=== PATIENT | female | born 1990 | race African-American/Black ===

== ENCOUNTER 2017-09-27 13:38 | Inpatient (IN) | payer OTHER ==
[~2017-09-27] VITALS: Ht 172.7 cm; Wt 99.7 kg
[2017-09-27 13:43] VITALS: Ht 172.7 cm; Wt 99.7 kg
[2017-09-27 14:12] LABS: RED CELL DISTRIBUTION WIDTH 14.2 % (11.5-14.5)
[2017-09-27 14:13] LABS: PLATELET COUNT 125 x10^3mcL (130-400)
[2017-09-27 14:25] LABS: BILIRUBIN TOTAL 1.4 mg/dL (0.20-1.00); CALCIUM 6.6 mg/dL (8.5-10.1); CARBON DIOXIDE 14.9 mmol/L (21-32); TOTAL PROTEIN, SERUM 6.7 g/dL (6.4-8.2)
[2017-09-27 14:35] LABS: BAND NEUTROPHIL 14 % (0-10); BASOPHIL 0 % (0-2); MONOCYTE 2 % (0-7); SEGMENTED NEUTROPHILS 82 % (37-75)
[2017-09-27 14:36] LABS: rbc morphology (normal/abnorm) ABNORMAL (NORMAL)
[2017-09-27 14:47] LABS: ALBUMIN 2.8 g/dL (3.4-5.0); CREATININE SERUM 7.2 mg/dL (0.6-1.0); POTASSIUM SERUM 2.7 mmol/L (3.5-5.1)
[2017-09-27 14:51] LABS: UA SPECIFIC GRAVITY >=1.030 (1.005-1.035); microscopic required? YES; urine erythrocyte 3+ (NEGATIVE)
[2017-09-27 16:55] LABS: PHOSPHOROUS 5.7 mg/dL (2.5-4.9)
[2017-09-27 17:07] LABS: T3 TOTAL 0.41 ng/mL
[2017-09-27 17:21] LABS: FREE T4 0.89 ng/dL (0.76-1.46)
[2017-09-27 17:22] LABS: FREE THYROXINE INDEX 1.5 ug/dL (1.4-4.5); T4(THYROXINE) 4.3 ug/dL (4.7-13.3)
[2017-09-27 17:28] LABS: CHOLESTEROL/HDL RATIO 7.8; MAGNESIUM 0.8 mg/dL (1.8-2.4)
[2017-09-27 17:59] VITALS: BP 146/95
[2017-09-27 18:07] VITALS: BP 96/50
[2017-09-27 19:35] VITALS: BP 112/63
[2017-09-27 20:17] LABS: CALCIUM 6.2 mg/dL (8.5-10.1); CARBON DIOXIDE 14.1 mmol/L (21-32)
[2017-09-27 20:21] LABS: CREATININE SERUM 6.1 mg/dL (0.6-1.0); POTASSIUM SERUM 2.8 mmol/L (3.5-5.1)
[2017-09-27 20:36] LABS: AMPHETAMINE QUAL UR NONE DETECTED (See below)
[2017-09-27 21:52] LABS: RED CELL DISTRIBUTION WIDTH 14.3 % (11.5-14.5)
[2017-09-27 21:56] LABS: CALCIUM 6.5 mg/dL (8.5-10.1); CARBON DIOXIDE 16.9 mmol/L (21-32); MAGNESIUM 1.4 mg/dL (1.8-2.4)
[2017-09-27 21:58] LABS: CREATININE SERUM 5.7 mg/dL (0.6-1.0)
[2017-09-27 22:09] LABS: PLATELET COUNT 96 x10^3mcL (130-400)
[2017-09-27 22:18] LABS: BAND NEUTROPHIL 13 % (0-10); BASOPHIL 0 % (0-2); MONOCYTE 1 % (0-7); SEGMENTED NEUTROPHILS 83 % (37-75)
[2017-09-27 22:19] LABS: rbc morphology (normal/abnorm) ABNORMAL (NORMAL)
[2017-09-27 23:02] VITALS: BP 101/58
[2017-09-28] VITALS (8 sets, daily range): BP systolic 91–116; BP diastolic 52–65
[2017-09-28 00:25] LABS: CREATININE UR 192.4 mg/dL
[2017-09-28 05:17] LABS: PLATELET COUNT 86 x10^3mcL (130-400); RED CELL DISTRIBUTION WIDTH 14.7 % (11.5-14.5)
[2017-09-28 05:18] LABS: BASOPHIL % 0 % (0-2)
[2017-09-28 05:45] LABS: CARBON DIOXIDE 20.4 mmol/L (21-32); PHOSPHOROUS 5.2 mg/dL (2.5-4.9); POTASSIUM SERUM 3.6 mmol/L (3.5-5.1)
[2017-09-28 05:47] LABS: CREATININE SERUM 4.4 mg/dL (0.6-1.0)
[2017-09-29 03:06] VITALS: BP 91/63
[2017-09-29 05:23] LABS: BASOPHIL % 0 % (0-2); PLATELET COUNT 52 x10^3mcL (130-400); RED CELL DISTRIBUTION WIDTH 14.7 % (11.5-14.5)
[2017-09-29 05:45] LABS: CARBON DIOXIDE 20.2 mmol/L (21-32); CREATININE SERUM 2.1 mg/dL (0.6-1.0); PHOSPHOROUS 1.5 mg/dL (2.5-4.9)
[2017-09-29 05:50] LABS: CALCIUM 5.9 mg/dL (8.5-10.1); POTASSIUM SERUM 2.6 mmol/L (3.5-5.1)
[2017-09-29 07:45] VITALS: BP 97/44
[2017-09-29 11:50] VITALS: BP 102/56
[2017-09-29 15:46] VITALS: BP 108/67
[2017-09-30 05:25] VITALS: BP 106/57
[2017-09-30 08:01] LABS: RED CELL DISTRIBUTION WIDTH 15.1 % (11.5-14.5)
[2017-09-30 08:03] LABS: PLATELET COUNT 48 x10^3mcL (130-400)
[2017-09-30 08:23] VITALS: BP 136/89
[2017-09-30 08:27] VITALS: BP 114/63
[2017-09-30 08:37] LABS: CALCIUM 6.4 mg/dL (8.5-10.1); CARBON DIOXIDE 21.7 mmol/L (21-32); CHLORIDE SERUM 107 mmol/L (98-107); GFR1 > 60 mL/min; GLUCOSE SERUM 94 mg/dL (74-106); MAGNESIUM 2.3 mg/dL (1.8-2.4); PHOSPHOROUS 1.7 mg/dL (2.5-4.9); POTASSIUM SERUM 3.2 mmol/L (3.5-5.1); SODIUM SERUM 140 mmol/L (136-145)
[2017-09-30 10:04] LABS: BAND NEUTROPHIL 7 % (0-10); BASOPHIL 0 % (0-2); MONOCYTE 6 % (0-7); PLATELET MORPHOLOGY PLATELETS DECREASED; SEGMENTED NEUTROPHILS 77 % (37-75); rbc morphology (normal/abnorm) ABNORMAL (NORMAL)
[2017-09-30 12:41] VITALS: BP 106/61
[2017-09-30 13:18] LABS: CARBON DIOXIDE 24.9 mmol/L (21-32); CHLORIDE SERUM 107 mmol/L (98-107); CREATININE SERUM 0.9 mg/dL (0.6-1.0); GFR1 > 60 mL/min; GLUCOSE SERUM 89 mg/dL (74-106); POTASSIUM SERUM 3.6 mmol/L (3.5-5.1); SODIUM SERUM 139 mmol/L (136-145)
[2017-09-30 13:23] LABS: CALCIUM 5.9 mg/dL (8.5-10.1)
[2017-09-30 17:02] VITALS: BP 115/78
[2017-09-30 20:39] VITALS: BP 114/76
[2017-10-01 05:15] VITALS: BP 110/62
[2017-10-01 06:59] LABS: CALCIUM 6.2 mg/dL (8.5-10.1); CHLORIDE SERUM 106 mmol/L (98-107); CREATININE SERUM 0.8 mg/dL (0.6-1.0); GFR1 > 60 mL/min; GLUCOSE SERUM 77 mg/dL (74-106); PHOSPHOROUS 1.6 mg/dL (2.5-4.9); POTASSIUM SERUM 3.2 mmol/L (3.5-5.1); SODIUM SERUM 138 mmol/L (136-145)
[2017-10-01 07:34] LABS: RED CELL DISTRIBUTION WIDTH 15.1 % (11.5-14.5)
[2017-10-01 07:35] LABS: PLATELET COUNT 49 x10^3mcL (130-400)
[2017-10-01 08:38] LABS: COMPLEMENT C3 68 mg/dL (82-167); COMPLEMENT C4 21 mg/dL (14-44)
[2017-10-01 08:52] VITALS: BP 109/68
[2017-10-01 09:19] VITALS: BP 109/68
[2017-10-01 13:35] VITALS: BP 112/73
[2017-10-01 15:49] LABS: ATYPICAL LYMPH 5 %; BAND NEUTROPHIL 12 % (0-10); METAMYELOCTE 1 % (0-2); MONOCYTE 6 % (0-7); SEGMENTED NEUTROPHILS 63 % (37-75)
[2017-10-01 15:55] LABS: rbc morphology (normal/abnorm) ABNORMAL (NORMAL)
[2017-10-01 15:57] LABS: PLATELET MORPHOLOGY PLATELETS DECREASED
[2017-10-01] MEDS ORDERED: LEVOFLOXACIN500 M1 PO (16:19)
[2017-10-01] MEDS ORDERED: ZITHROMAX500 MG PO (16:20)
[2017-10-01] MEDS ORDERED: FLA500 PO (16:21)
== END 2017-10-01 17:44 | disposition home or self-care (01) | DRG 871 ==
LOC: ED 13:38 → IW 15:13 → IC 15:13 → DU 15:13 → IW 15:32 → IC 09-28 17:56 → DU 09-29 15:34
PROVIDERS: Emergency Medicine; Family Medicine; Internal Medicine; Internal Medicine Nephrology
PROC: 02HV33Z Insertion of Infusion Device into Superior Vena Cava, Percutaneous Approach (ICD-10-PCS; principal; 2017-09-27)
PROC: B548ZZA Ultrasonography of Superior Vena Cava, Guidance (ICD-10-PCS; 2017-09-27)
DX: A41.9 Sepsis, unspecified organism (principal); R65.21 Severe sepsis with septic shock; K72.00 Acute and subacute hepatic failure without coma; E43 Unspecified severe protein-calorie malnutrition; N17.0 Acute kidney failure with tubular necrosis; I21.4 Non-ST elevation (NSTEMI) myocardial infarction; D65 Disseminated intravascular coagulation [defibrination syndrome]; G72.81 Critical illness myopathy; N39.0 Urinary tract infection, site not specified; E87.4 Mixed disorder of acid-base balance; E87.2 Acidosis; E87.1 Hypo-osmolality and hyponatremia; A09 Infectious gastroenteritis and colitis, unspecified; F41.9 Anxiety disorder, unspecified; N18.9 Chronic kidney disease, unspecified; N76.0 Acute vaginitis; E87.6 Hypokalemia; E86.0 Dehydration; K72.90 Hepatic failure, unspecified without coma; R31.9 Hematuria, unspecified; R80.9 Proteinuria, unspecified; E83.42 Hypomagnesemia; Z68.27 Body mass index [BMI] 27.0-27.9, adult; Z72.89 Other problems related to lifestyle; Z83.3 Family history of diabetes mellitus
CPT/HCPCS: 36556; 36600; 80201; 83880; 84439; 87046; 87046-59; 87491; 87591; 94150; 97110-GP; 97116-GP; 97530-GP; G0480; J0456; J0696; J1170; J1642; J1720; J1956; J2060; J2270; J2405; J2543; J2550; J3010; J3370; J3475; J3480; J3490; J7030; J7040; J7620; Q0092